=== PATIENT | male | born 1975 | race Caucasian/White ===

== ENCOUNTER 2018-02-08 21:48 | Emergency (ER) | payer SELFPAY ==
[2018-02-08 22:00] VITALS: BP 115/90
[2018-02-08] MEDS ORDERED: CYCL10TA29 PO ×3 (22:00→23:05)
[2018-02-08] MEDS ORDERED: OXYC10TA67 PO (22:00)
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
[2018-02-08] MEDS ORDERED: OXYC5TAB38 PO (23:04)
[2018-02-08] MEDS ORDERED: oxyCODONE HCL 5 MG CAP PO ONE (23:05)
[2018-02-08] MEDS ORDERED: CYCLOBENZAPRINE HCL 10 MG TH PO ONE (23:05)
[2018-02-08] MEDS ORDERED: CYCLOBENZAPRINE HCL 10 MG TAB PO ONE (23:05)
== END 2018-02-08 23:15 | disposition home or self-care (01) ==
LOC: ER 22:08
DX: M54.42 Lumbago with sciatica, left side (principal); X50.0XXA Overexertion from strenuous movement or load, initial encounter
CPT/HCPCS: 99283

== ENCOUNTER 2018-02-16 18:52 | Emergency (ER) | payer SELFPAY ==
[~2018-02-16 18:52] MED LIST: CYCL10TA29 PO; OXYC10TA67 PO; OXYC5TAB38 PO
--- NOTE | 2018-02-16 19:02 | ER Report ---
History and Physical Time Seen By MD: 19:02 Hx. of Stated Complaint: patient "twisted" knee yesterday HPI/ROS CHIEF COMPLAINT: left knee injury HISTORY OF PRESENT ILLNESS: This is a 42 year old male. He twisted his knee yesterday. Was wrestling with a friend. Had moderate pain initially, but was able to walk. Worse today, now any movement causes severe pain. Mainly on medial side of the knee. Somewhat posterior and anterior as well. Normal sensation in the leg. Having some swelling as well. Allergies: Coded Allergies: No Known Drug Allergies (Unverified , 02/16/18) Home Meds Active Scripts Oxycodone Hcl (OXYCODONE HCL) 5 Mg Tablet, 5 MG PO Q4H PRN for PAIN, #6 TAB 0 Refills Prov:BOAZ FLOYD MD 02/16/18 Ketorolac Tromethamine (KETOROLAC TROMETHAMINE) 10 Mg Tab, 10 MG PO Q6H PRN for PAIN, #12 TAB 0 Refills Prov:BOAZ FLOYD MD 02/16/18 Cyclobenzaprine Hcl (CYCLOBENZAPRINE HCL) 10 Mg Tablet, 10 MG PO Q8H PRN for MUSCLE SPASMS, #20 TAB 0 Refills Prov:BOAZ FLOYD MD 02/08/18 Cyclobenzaprine Hcl (CYCLOBENZAPRINE HCL) 10 Mg Tablet, 10 MG PO Q8H PRN for MUSCLE SPASMS, #20 TAB 0 Refills Prov:BOAZ FLOYD MD 02/08/18 Oxycodone Hcl (OXYCODONE HCL) 5 Mg Tablet, 5 MG PO Q4H PRN for PAIN, #10 TAB 0 Refills Prov:BOAZ FLOYD MD 02/08/18 Reported Medications Cyclobenzaprine Hcl (CYCLOBENZAPRINE HCL) 10 Mg Tablet, 10 MG PO BID, #9 TAB 02/08/18 Oxycodone Hcl 10 Mg Tab (OXYCODONE HCL 10 MG TAB) 10 Mg Tablet, 10 MG PO Q4-6H, TAB 02/08/18 Reviewed Nurses Notes: Yes Hx Substance Use Disorder: No Hx Alcohol Use: No Constitutional Vital Sign - Last 24 Hours 02/16/18 02/16/18 02/16/18 02/16/18 18:52 18:55 18:55 19:00 Temp 99.1 Pulse ??? 110 Resp 18 B/P (MAP) 139/96 (110) 139/96 126/87 (100) Pulse Ox 93 O2 Delivery Room Air 02/16/18 02/16/18 02/16/18 02/16/18 19:22 19:30 19:52 20:00 Pulse 101 88 B/P (MAP) 111/76 (88) 128/79 (95) Pulse Ox 94 90 02/16/18 02/16/18 20:22 20:30 Pulse 88 B/P (MAP) 113/77 (89) Pulse Ox 89 Physical Exam General appearance: Alert, some distress due to pain. Musculoskeletal: Left knee shows mild swelling. There is no effusion. There is no obvious deformity of the knee. Patella had pain medial side with palpation. Medial jointline is tender to palpation. Lateral jointline is non-tender to palpation. Mary is negative but with significant guarding, and the joint has no appreciable laxity, but again with significant guarding. Any motion causes severe pain. There is no tenderness proximal or distal to the knee. Neurologic: The patient has normal sensation distal to the injury. Cardiovascular: Normal pulses and capillary refill in the foot Skin: No rashes. No skin breakdown. DIFFERENTIAL DIAGNOSIS: After history and physical exam differential diagnosis was considered for knee injury including sprain, fracture, meniscus injury and soft tissue injury. Medical Decision Making EKG/Imaging Imaging Examination: KNEE 4 VIEW LEFT Comparison: None. History: knee injury yesterday, pain medial/posterior Findings: No fracture. Alignment and joint spaces are normal. No joint effusion. Soft tissues are unremarkable. IMPRESSION: Negative left knee. Report Dictated By: Andre Connor MD at 02/16/2018 8:13 PM ED Course/Re-evaluation ED Course Knee x-ray obtained, negative for fracture. Will use a knee immobilizer, crutches, Toradol and limited oxycodone IR tablets. Recommended follow-up with orthopedic surgery. Decision to Disposition Date: Feb 16, 2018 Decision to Disposition Time: 20:24 Depart Departure Latest Vital Signs Vital Signs Date Time Temp Pulse Resp B/P (MAP) Pulse Ox O2 Delivery O2 Flow Rate FiO2 02/16/18 20:30 113/77 (89) 02/16/18 20:22 88 89 02/16/18 18:55 99.1 18 Room Air Impression: Primary Impression: Left knee injury Condition: Improved Disposition: HOME OR SELF-CARE New Scripts Oxycodone Hcl (OXYCODONE HCL) 5 Mg Tablet 5 MG PO Q4H PRN for PAIN, #6 TAB 0 Refills Prov: BOAZ FLOYD MD 02/16/18 Ketorolac Tromethamine (KETOROLAC TROMETHAMINE) 10 Mg Tab 10 MG PO Q6H PRN for PAIN, #12 TAB 0 Refills Prov: BOAZ FLOYD MD 02/16/18 Patient Instructions: Knee Immobilizer (ED), Knee Pain (ED) Additional Instructions: Toradol 10mg, one every 6 hours for pain. Oxycodone 5mg IR, one every 4 hours as needed for severe pain. Apply ice 20 minutes every 1-2 hours while awake. Knee immobilizer and crutches. Call [facility] in the morning to schedule a follow-up appointment with them. Rest the injured area, keep it elevated while at rest. Problem Qualifiers Primary Impression: Left knee injury Encounter type: initial encounter Qualified Codes: S89.92XA - Unspecified injury of left lower leg, initial encounter BOAZ FLOYD MD Feb 16, 2018 19:02
[2018-02-16] MEDS ORDERED: oxyCODONE HCL 5 MG CAP PO ONE ×2 (19:10→20:25)
[2018-02-16] MEDS ORDERED: KETOROLAC TROM 10MG TAB PO ONE (20:10)
--- NOTE | 2018-02-16 20:20 | RADIOLOGY IMAGING REPORT ---
FACILITY: [facility] [place] PATIENT NAME: Carter Stallworth : 1975 MR: [id number] V: [id number] EXAM DATE: ORDERING PHYSICIAN: BOAZ FLOYD TECHNOLOGIST: Location: [facility] [place] Patient: Carter Stallworth : 1975 Visit/Account:[id number] Date of Sevice: 02/16/2018 Examination: KNEE 4 VIEW LEFT Comparison: None. History: knee injury yesterday, pain medial/posterior Findings: No fracture. Alignment and joint spaces are normal. No joint effusion. Soft tissues are unr emarkable. IMPRESSION: Negative left knee. Report Dictated By: Andre Connor MD at 02/16/2018 8:13 PM Report E-Signed By: Andre Connor MD at 02/16/2018 8:15 PM WSN:[id number]
[2018-02-16] MEDS ORDERED: KET10 PO (20:25)
[2018-02-16] MEDS ORDERED: OXYC5TAB38 PO (20:25)
[2018-02-16] MEDS ORDERED: KETOROLAC TROM 10 MG TAB TH PO ONE (20:25)
[2018-02-16 20:30] VITALS: BP 113/77
== END 2018-02-16 20:40 | disposition home or self-care (01) ==
LOC: ER 19:15
DX: S89.92XA Unspecified injury of left lower leg, initial encounter (principal)
CPT/HCPCS: 73564; 99283; L1830

== ENCOUNTER 2018-02-20 18:39 | Emergency (ER) | payer SELFPAY ==
[~2018-02-20 18:39] MED LIST changes: +KET10 PO
[2018-02-20 18:45] VITALS: BP 142/90
--- NOTE | 2018-02-20 18:53 | ER Report ---
History and Physical Time Seen By : 18:53 Hx. of Stated Complaint: PT SEEN RECENTLY FOR KNEE INJURY, OUT OF PAIN MEDS, UNABLE TO F/U WITH [facility] UNTIL LATER THIS WEEK HPI/ROS CHIEF COMPLAINT: continued knee pain, requesting pain medicine HISTORY OF PRESENT ILLNESS: This is a 42 year old male that we saw earlier in the week. He had negative x-rays and is in a knee immobilizer. He has called [facility], and says he was told they could get in later this week. He used the Toradol and small prescription for Oxycodone IR earlier in the week. Still with severe sharp pain medial side of the knee. Swelling going down. Pain in the knee without radiation. He has prior pain management with narcotics, and wanted to get Oxycodone IR 10mg tablets. Allergies: Coded Allergies: No Known Drug Allergies (Unverified , 02/20/18) Home Meds Active Scripts Tramadol Hcl (TRAMADOL HCL) 50 Mg Tablet, 50 MG PO Q6H PRN for PAIN, #15 TAB 0 Refills Prov:BOAZ FLOYD MD 02/20/18 Oxycodone Hcl (OXYCODONE HCL) 5 Mg Tablet, 5 MG PO Q6H PRN for PAIN, #6 TAB 0 Refills Prov:BOAZ FLOYD MD 02/20/18 Oxycodone Hcl (OXYCODONE HCL) 5 Mg Tablet, 5 MG PO Q4H PRN for PAIN, #6 TAB 0 Refills Prov:BOAZ FLOYD MD 02/16/18 Ketorolac Tromethamine (KETOROLAC TROMETHAMINE) 10 Mg Tab, 10 MG PO Q6H PRN for PAIN, #12 TAB 0 Refills Prov:BOAZ FLOYD MD 02/16/18 Reported Medications Cyclobenzaprine Hcl (CYCLOBENZAPRINE HCL) 10 Mg Tablet, 10 MG PO BID, #9 TAB 02/08/18 Discontinued Reported Medications Oxycodone Hcl 10 Mg Tab (OXYCODONE HCL 10 MG TAB) 10 Mg Tablet, 10 MG PO Q4-6H, TAB 02/08/18 Discontinued Scripts Cyclobenzaprine Hcl (CYCLOBENZAPRINE HCL) 10 Mg Tablet, 10 MG PO Q8H PRN for MUSCLE SPASMS, #20 TAB 0 Refills Prov:BOAZ FLOYD MD 02/08/18 Cyclobenzaprine Hcl (CYCLOBENZAPRINE HCL) 10 Mg Tablet, 10 MG PO Q8H PRN for MUSCLE SPASMS, #20 TAB 0 Refills Prov:BOAZ FLOYD MD 02/08/18 Oxycodone Hcl (OXYCODONE HCL) 5 Mg Tablet, 5 MG PO Q4H PRN for PAIN, #10 TAB 0 Refills Prov:BOAZ FLOYD MD 02/08/18 Reviewed Nurses Notes: Yes Hx Substance Use Disorder: No Hx Alcohol Use: No Constitutional Vital Sign - Last 24 Hours 02/20/18 18:45 Temp 98.2 Pulse 86 Resp 16 B/P (MAP) 142/90 Pulse Ox 96 O2 Delivery Room Air Physical Exam General: Alert, no acute distress. Musculoskeletal: No effusion noted. Mild swelling. Pain medial knee, but none over kneecap, lateral or patella tendon and quads. Neuro: Normal sensation. Cardiovascular: Normal pulses. Medical Decision Making ED Course/Re-evaluation ED Course Reviewed that we cannot keep giving him narcotics here in the ER. We can give another small prescription of the Oxycodone IR 5mg tablets, wrote for #6. Recommended a trial of Tramadol 50mg tablets for pain. He can also use Ibuprofen for pain. See instructions. Decision to Disposition Date: Feb 20, 2018 Decision to Disposition Time: 19:11 Depart Departure Latest Vital Signs Vital Signs Date Time Temp Pulse Resp B/P (MAP) Pulse Ox O2 Delivery O2 Flow Rate FiO2 02/20/18 18:45 98.2 86 16 142/90 96 Room Air Impression: Primary Impression: Left knee injury Condition: Condition Unchanged Disposition: HOME OR SELF-CARE New Scripts Tramadol Hcl (TRAMADOL HCL) 50 Mg Tablet 50 MG PO Q6H PRN for PAIN, #15 TAB 0 Refills Prov: BOAZ FLOYD MD 02/20/18 Oxycodone Hcl (OXYCODONE HCL) 5 Mg Tablet 5 MG PO Q6H PRN for PAIN, #6 TAB 0 Refills Prov: BOAZ FLOYD MD 02/20/18 Patient Instructions: Knee Immobilizer (ED), Knee Pain (ED) Additional Instructions: Keep the leg elevated while at rest. Keep using the knee immobilizer and crutches. Follow-up with [facility] as planned this week. Keep using ice to help with pain. Take Oxycodone IR 5mg, one every 6 hours as needed for severe pain. This is a limited supply, and would recommend using at bedtime. You can also try using Tramadol 50mg, one every 6 hours as needed for pain. Use Ibuprofen 200mg over the counter tablets, 4 tablets every 8 hours for pain. Increase fluid intake. Problem Qualifiers Primary Impression: Left knee injury Encounter type: subsequent encounter Qualified Codes: S89.92XD - Unspecified injury of left lower leg, subsequent encounter BOAZ FLOYD MD Feb 20, 2018 18:53
[2018-02-20] MEDS ORDERED: oxyCODONE HCL 5 MG CAP PO ONE (19:10)
[2018-02-20] MEDS ORDERED: TRAM-420 PO (19:18)
[2018-02-20] MEDS ORDERED: OXYC5TAB38 PO (19:18)
== END 2018-02-20 19:26 | disposition home or self-care (01) ==
LOC: ER 18:48
DX: M25.562 Pain in left knee (principal)
CPT/HCPCS: 99283

== ENCOUNTER 2018-04-20 11:41 | Emergency (ER) | payer SELFPAY ==
[~2018-04-20 11:41] MED LIST changes: +TRAM-420 PO
--- NOTE | 2018-04-20 12:03 | ER Report ---
History and Physical Time Seen By : 12:02 Hx. of Stated Complaint: Patient has an old left knee injury that he aggravated last night by falling on the ice. Has not taken anything for his pain today HPI/ROS CHIEF COMPLAINT: Knee pain HISTORY OF PRESENT ILLNESS: 32-year-old male patient presents to emergency room with complaint of left knee pain. Patient states that he was out on last night and slipped and fell. States that he twisted his knee when he fell. He states since then he's been having pain to the left knee. He states he has significant amounts of discomfort with ambulation. He denies any numbness tingling to his foot. He states he does have a history of a previous knee injury. He states that he was referred to [facility], they wanted to an MRI, however he has refused. Patient states that the pain has been persistent. He states he is not taking anything for his pain today. Allergies: Coded Allergies: No Known Drug Allergies (Unverified , 04/20/18) Home Meds Active Scripts Oxycodone Hcl (OXYCODONE HCL) 5 Mg Capsule, 5 MG PO Q4-6H PRN for PAIN, #6 CAPSULE Prov:AIDE HODGES [facility] 04/20/18 Oxycodone Hcl/Acetaminophen (PERCOCET 5-325 MG TABLET) 1 Each Tablet, 1 EACH PO Q4-6H PRN for PAIN, #6 TAB Prov:AIDE HODGES [facility] 04/20/18 Discontinued Reported Medications Cyclobenzaprine Hcl (CYCLOBENZAPRINE HCL) 10 Mg Tablet, 10 MG PO BID, #9 TAB 02/08/18 Discontinued Scripts Tramadol Hcl (TRAMADOL HCL) 50 Mg Tablet, 50 MG PO Q6H PRN for PAIN, #15 TAB 0 Refills Prov:BOAZ FLODY MD 02/20/18 Oxycodone Hcl (OXYCODONE HCL) 5 Mg Tablet, 5 MG PO Q6H PRN for PAIN, #6 TAB 0 Refills Prov:BOAZ FLOYD MD 02/20/18 Oxycodone Hcl (OXYCODONE HCL) 5 Mg Tablet, 5 MG PO Q4H PRN for PAIN, #6 TAB 0 Refills Prov:BOAZ FLOYD MD 02/16/18 Ketorolac Tromethamine (KETOROLAC TROMETHAMINE) 10 Mg Tab, 10 MG PO Q6H PRN for PAIN, #12 TAB 0 Refills Prov:BOAZ FLOYD MD 02/16/18 Past Medical/Surgical History Patient has a past medical history of migraines, back pain. Patient denies any surgical history. Patient has a family medical history of cancer. Reviewed Nurses Notes: Yes Hx Substance Use Disorder: No Hx Alcohol Use: No Constitutional Vital Sign - Last 24 Hours 04/20/18 04/20/18 11:48 13:30 Temp 97.6 Pulse 85 85 Resp 16 16 B/P (MAP) 119/81 118/80 (93) Pulse Ox 94 O2 Delivery Room Air Physical Exam General Appearance: The patient is alert, has no immediate need for airway protection and no current signs of toxicity. Respiratory: Chest is non tender, lungs are clear to auscultation. Cardiac: regular rate and rhythm Musculoskeletal: Extremities have full range of motion and are non tender. Patient does have tenderness to the left knee, she is to be worse on the medial aspect. There is some effusion noted on exam of the posterior aspect of the knee. There is no bruising or swelling noted. Skin: No rashes or lesions. DIFFERENTIAL DIAGNOSIS: After history and physical exam differential diagnosis was considered for knee sprain, knee contusion, fracture. Medical Decision Making EKG/Imaging Imaging KNEE 4 VIEW LEFT Indication: Pain after injury Comparison: 04/18/2018 Findings: No evidence of fracture, dislocation, or acute osseous abnormality of the left knee. The joint spaces are well-maintained. No evidence of joint effusion. There is no focal soft tissue abnormality. No evidence of radiopaque foreign body. IMPRESSION: 1.No acute osseous abnormality of the left knee Report Dictated By: Fred Eduardo at 04/20/2018 12:50 PM Report E-Signed By: Fred Eduardo at 04/20/2018 12:51 PM ED Course/Re-evaluation ED Course Patient was admitted and examined, history and physical were obtained. Differential diagnoses were considered. On examination lungs are clear, heart is regular, patient does have tenderness to the medial aspect of the left knee. X- rays done left knee which was negative. I discussed the findings with the patient. We will go ahead and place patient in a knee immobilizer, given crut ches and discharge him home. Patient was requesting something for pain. I initially gave him Toradol, which she states did not seem to help. We will go ahead and discharge him home with a limited supply of oxycodone. He has received this in the past. I do have some concerns about possible drug-seeking behavior. I did receive a call from the pharmacist at [facility] with the patient going to several different pharmacies getting pain medication. In fact he's never gone to the same pharmacy twice. I think his result of this we will have to monitor the patient for drug-seeking behavior and address that accordingly. Decision to Disposition Date: Apr 20, 2018 Decision to Disposition Time: 13:05 Depart Departure Latest Vital Signs Vital Signs Date Time Temp Pulse Resp B/P (MAP) Pulse Ox O2 Delivery O2 Flow Rate FiO2 04/20/18 13:30 85 16 118/80 (93) 04/20/18 11:48 97.6 94 Room Air Impression: Primary Impression: Left knee injury Condition: Improved Disposition: HOME OR SELF-CARE Referrals: ROLANDO FOX MD New Scripts Oxycodone Hcl (OXYCODONE HCL) 5 Mg Capsule 5 MG PO Q4-6H PRN for PAIN, #6 CAPSULE Prov: AIDE HODGES 04/20/18 Oxycodone Hcl/Acetaminophen (PERCOCET 5-325 MG TABLET) 1 Each Tablet 1 EACH PO Q4-6H PRN for PAIN, #6 TAB Prov: AIDE HODGES 04/20/18 Patient Instructions: Knee Pain (ED) Additional Instructions: Limit activity by pain. Wear the knee immobilizer when up moving around. You may take the knee immobilizer off to shower and rest. Follow up with [facility], call this afternoon to make an appointment. Return to the ER if condition worsens. You need to take Ibuprofen 800mg (4 of the 200mg tablets) three times a day until you see [facility]. Problem Qualifiers Primary Impression: Left knee injury Encounter type: initial encounter Qualified Codes: S89.92XA - Unspecified injury of left lower leg, initial encounter AIDE HODGES Apr 20, 2018 12:03
[2018-04-20] MEDS ORDERED: KETOROLAC TROM 10MG TAB PO ONE (12:55)
--- NOTE | 2018-04-20 12:56 | RADIOLOGY IMAGING REPORT ---
FACILITY: [facility] PATIENT NAME: Carter Stallworth : 1975 MR: [id number] V: [id number] EXAM DATE: ORDERING PHYSICIAN: AIDE HODGES TECHNOLOGIST: Location: [facility] [place] Patient: Carter Stallworth : 1975 Visit/Account:[id number] Date of Sevice: 04/20/2018 KNEE 4 VIEW LEFT Indication: Pain after injury Comparison: 04/18/2018 Findings: No evidence of fracture, dislocation, or acute osseous abnormality of the left knee. The joint spaces are well-maintained. No evidence of joint effusion. There is no focal soft tissue abnormality. No evidence of radiopaque foreign body. IMPRESSION: 1.No acute osseous abnormality of the left knee Report Dictated By: Fred Eduardo at 04/20/2018 12:50 PM Report E-Signed By: Fred Eduardo at 04/20/2018 12:51 PM WSN:[id number]
[2018-04-20] MEDS ORDERED: OXYC-865 PO (13:09)
[2018-04-20] MEDS ORDERED: OXYC5CAP21 PO (13:18)
[2018-04-20 13:30] VITALS: BP 118/80
== END 2018-04-20 13:32 | disposition home or self-care (01) ==
LOC: ER 12:14
DX: S89.92XA Unspecified injury of left lower leg, initial encounter (principal); W00.0XXA Fall on same level due to ice and snow, initial encounter
CPT/HCPCS: 73564; 99283; L1830

== ENCOUNTER 2018-04-25 19:39 | Emergency (ER) | payer SELFPAY ==
[~2018-04-25 19:39] MED LIST changes: +OXYC-865 PO; +OXYC5CAP21 PO
[2018-04-25 19:44] VITALS: BP 108/78
--- NOTE | 2018-04-25 19:45 | ER Report ---
History and Physical Time Seen By MD: 19:44 HPI/ROS CHIEF COMPLAINT: Left knee pain HISTORY OF PRESENT ILLNESS: 42-year-old male presents ambulatory to the ER complaining of left knee pain. He states that while he was ambulating using a knee immobilizer and crutches. 3 days ago he twisted his knee while walking on the ice. He's been seen in the ER multiple times over the last month. He's been referred to orthopedic surgery. Patient states he is unable to afford the MRI that they've ordered. REVIEW OF SYSTEMS: Respiratory: No cough, no dyspnea. Cardiovascular: No chest pain, no palpitations. Gastrointestinal: No vomiting, no abdominal pain. Musculoskeletal: As above Allergies: Coded Allergies: No Known Drug Allergies (Unverified , 04/25/18) Home Meds Active Scripts Ketorolac Tromethamine (KETOROLAC TROMETHAMINE) 10 Mg Tab, 10 MG PO Q6H PRN for PAIN, #10 TAB Prov:LINA WATT Gutierrez DO 04/25/18 Prednisone 10 Mg Tab (PREDNISONE 10 MG TAB) 10 Mg Tablet, 10 MG PO QDAY PRN for reduced joint inflammation, #9 2 tabs daily for 3 days 1 tab daily for 3 days Prov:LINA WATT DO 04/25/18 Discontinued Reported Medications Cyclobenzaprine Hcl (CYCLOBENZAPRINE HCL) 10 Mg Tablet, 10 MG PO BID, #9 TAB 02/08/18 Discontinued Scripts Oxycodone Hcl (OXYCODONE HCL) 5 Mg Capsule, 5 MG PO Q4-6H PRN for PAIN, #6 CAPSULE Prov:AIDE HODGES 04/20/18 Oxycodone Hcl/Acetaminophen (PERCOCET 5-325 MG TABLET) 1 Each Tablet, 1 EACH PO Q4-6H PRN for PAIN, #6 TAB Prov:AIDE HODGES 04/20/18 Tramadol Hcl (TRAMADOL HCL) 50 Mg Tablet, 50 MG PO Q6H PRN for PAIN, #15 TAB 0 Refills Prov:BOAZ FLOYD MD 02/20/18 Oxycodone Hcl (OXYCODONE HCL) 5 Mg Tablet, 5 MG PO Q6H PRN for PAIN, #6 TAB 0 Refills Prov:BOAZ FLOYD MD 02/20/18 Oxycodone Hcl (OXYCODONE HCL) 5 Mg Tablet, 5 MG PO Q4H PRN for PAIN, #6 TAB 0 Refills Prov:BOAZ FLOYD MD 02/16/18 Ketorolac Tromethamine (KETOROLAC TROMETHAMINE) 10 Mg Tab, 10 MG PO Q6H PRN for PAIN, #12 TAB 0 Refills Prov:BOAZ FLOYD MD 02/16/18 Past Medical/Surgical History Patient has a past medical history of migraines, back pain. Patient denies any surgical history. Patient has a family medical history of cancer. Reviewed Nurses Notes: Yes Old Medical Records Reviewed: Yes Hx Substance Use Disorder: No Hx Alcohol Use: No Constitutional Vital Sign - Last 24 Hours 04/25/18 19:44 Temp 97.7 Pulse 99 Resp 18 B/P (MAP) 108/78 Pulse Ox 92 O2 Delivery Room Air Physical Exam General Appearance: The patient is alert, has no immediate need for airway protection and no current signs of toxicity. Vital signs stable, afebrile, heavy odor of cannabis smoke Eyes: Pupils equal and round no injection. Respiratory: Chest is non tender, lungs are clear to auscultation. Cardiac: regular rate and rhythm Gastrointestinal: Abdomen is soft and non tender, no masses, bowel sounds normal. Musculoskeletal: Neck: Neck is supple and non tender. Extremities have full range of motion and are non tender. Examination of the left knee reveals no joint effusion, no erythema, no laxity to the ligaments. Patient has pain out of proportion to clinical findings on any manipulation of the knee. The left lower extremity is vascularly intact. Skin: No rashes or lesions. DIFFERENTIAL DIAGNOSIS: After history and physical exam differential diagnosis was considered for sprain, strain, fracture, dislocation, contusion, internal derangement, gout, drug-seeking behavior Medical Decision Making ED Course/Re-evaluation ED Course Patient was admitted to an examination room. H&P was done. The differential diagnoses was considered. On clinical examination. Patient has a normal appearing knee. Patient's been referred to orthopedic surgery. Patient was here just 5 days ago and received a limited supply of opiate pain medication. I informed the patient we would not prescribe any more opiate pain relievers. I would be happy to prescribe him steroids to reduce the inflammation in his knee and a nonnarcotic pain medication. Patient became quite upset when he found that he would not be provided a prescription for opiate pain relievers. He stormed out of the ER. Decision to Disposition Date: Apr 25, 2018 Decision to Disposition Time: 19:53 Depart Departure Latest Vital Signs Vital Signs Date Time Temp Pulse Resp B/P (MAP) Pulse Ox O2 Delivery O2 Flow Rate FiO2 04/25/18 19:44 97.7 99 18 108/78 92 Room Air Impression: Primary Impression: Left knee pain Condition: Improved Disposition: HOME OR SELF-CARE Referrals: ROLANDO FOX MD New Scripts Ketorolac Tromethamine (KETOROLAC TROMETHAMINE) 10 Mg Tab 10 MG PO Q6H PRN for PAIN, #10 TAB Prov: LINA WATT DO 04/25/18 Prednisone 10 Mg Tab (PREDNISONE 10 MG TAB) 10 Mg Tablet 10 MG PO QDAY PRN for reduced joint inflammation, #9 2 tabs daily for 3 days 1 tab daily for 3 days Prov: LINA WATT DO 04/25/18 Patient Instructions: Knee Pain (ED) Additional Instructions: Follow-up with [facility] as planned Problem Qualifiers Primary Impression: Left knee pain Chronicity: acute Qualified Codes: M25.562 - Pain in left knee LINA WATT DO Apr 25, 2018 19:45
[2018-04-25] MEDS ORDERED: KET10 PO (19:55)
[2018-04-25] MEDS ORDERED: PRED-1 PO (19:55)
== END 2018-04-25 20:20 | disposition home or self-care (01) ==
LOC: ER 19:46
DX: M25.562 Pain in left knee (principal)
CPT/HCPCS: 99281